=== PATIENT | male | born 1980 | race Hispanic/Latino ===

== ENCOUNTER 2017-10-26 07:57 | Emergency (ER) | payer SELFPAY ==
--- NOTE | 2017-10-26 09:41 | RAD ---
LEFT ANKLE RADIOGRAPHS 3 VIEWS: DATE: 10/26/17. PROVIDED CLINICAL HISTORY: Left ankle without injury. FINDINGS: There is no evidence for a fracture or other acute osseous abnormality. If there is persistent clini billy concern, conservative management and followup imaging are advised. IMPRESSION: As above. POS: JOAN
== END 2017-10-26 09:00 | disposition home or self-care (01) ==
LOC: ERS 07:57
DX: S93.402A Sprain of unspecified ligament of left ankle, initial encounter (principal); F17.220 Nicotine dependence, chewing tobacco, uncomplicated; X58.XXXA Exposure to other specified factors, initial encounter

== ENCOUNTER 2018-04-27 12:43 | Emergency (ER) | payer SELFPAY | END 2018-04-27 13:50 | disposition home or self-care (01) | LOC: ERS 12:43 | DX: M25.511 Pain in right shoulder (principal); F17.220 Nicotine dependence, chewing tobacco, uncomplicated | CPT/HCPCS: 99283 ==

== ENCOUNTER 2018-08-10 09:51 | Emergency (ER) | payer SELFPAY ==
[2018-08-10] MEDS ORDERED: HYDROcodone/Acetaminophen 10/325 mg Tablet ONE (11:06)
== END 2018-08-10 11:11 | disposition home or self-care (01) ==
LOC: ERS 09:51
DX: S39.012A Strain of muscle, fascia and tendon of lower back, initial encounter (principal); F17.220 Nicotine dependence, chewing tobacco, uncomplicated; X50.0XXA Overexertion from strenuous movement or load, initial encounter
CPT/HCPCS: 99283

== ENCOUNTER 2018-12-03 08:30 | Emergency (ER) | payer SELFPAY | END 2018-12-03 10:29 | disposition home or self-care (01) | LOC: ERS 08:30 | DX: L25.9 Unspecified contact dermatitis, unspecified cause (principal); F17.210 Nicotine dependence, cigarettes, uncomplicated | CPT/HCPCS: 99283 ==

== ENCOUNTER 2020-09-07 11:46 | Emergency (ER) | payer SELFPAY ==
[2020-09-07] MEDS ORDERED: Ketorolac Tromethamine 30 MG/ML VIAL ONE (13:30)
[2020-09-07 14:36] LABS: Bilirubin Negative (Negative); Blood, Urine Negative (Negative); Clarity Clear (Clear); Glucose, Urine (Dipstick) Normal (Negative); Ketone, Urine Negative (Negative); Leukocyte Negative Leu/uL (Negative); Nitrite Negative (Negative); Protein, Urine (Dipstick) 10 mg/dL (Neg-Trace); Specific Gravity, Urine 1.029 (1.002-1.036); Urobilinogen Normal mg/dL (Less than 2)
== END 2020-09-07 15:15 | disposition home or self-care (01) ==
LOC: ERS 11:46
DX: M54.5 Low back pain (principal); Z87.891 Personal history of nicotine dependence
CPT/HCPCS: 81003; 87086; 96372; 99283; J1885

== ENCOUNTER 2020-11-28 17:01 | Emergency (ER) | payer SELFPAY ==
[2020-11-28] MEDS ORDERED: Famotidine/PF 20 mg/2ml Vial ONE (17:43)
== END 2020-11-28 21:45 | disposition home or self-care (01) ==
LOC: ERS 17:01
DX: T63.441A Toxic effect of venom of bees, accidental (unintentional), initial encounter (principal); Z87.891 Personal history of nicotine dependence
CPT/HCPCS: 96374; S0028

== ENCOUNTER 2022-07-05 14:26 | Outpatient (CLI) | payer BC | END 2022-07-05 14:27 | disposition home or self-care (01) | LOC: SCSRAD 14:26 | PROVIDERS: ATTEND Internal Medicine | DX: M79.672 Pain in left foot (principal) ==